=== PATIENT | female | born 1970 | race Caucasian/White ===

== ENCOUNTER → 2016-06-04 | Outpatient (CLI) | payer BC, OTHER ==
[2016-03-06 13:50] VITALS: BP 131/68
--- NOTE | 2016-06-04 16:45 | CT ---
HISTORY: Daily headaches Study: CT brain without contrast Comparison: None Technique: Multiple axial images of the brain were obtained from the skull base to the vertex without administr ation of IV contrast. Dose reduction techniques including Automated Exposure Control (AEC) and adju stment of mA and kV were utilized. Findings: The brain parenchyma is within normal limits for patient's age. No evidence of acute hemorrhage, mi dline shift, mass effect or abnormal extra-axial fluid collection. The ventricular system is symmet sienna and nondilated. The soft tissues and osseous structures are unremarkable. The visualized parana sujatha sinuses are clear. IMPRESSION: 1.No acute intracranial abnormality. Reported By:
== END ==
LOC: RAD 15:51
PROVIDERS: ATTEND Nurse Practitioner Family
DX: G44.52 New daily persistent headache (NDPH) (principal); Z98.2 Presence of cerebrospinal fluid drainage device
CPT/HCPCS: 70450

== ENCOUNTER → 2016-08-13 | Outpatient (CLI) | payer BC, OTHER ==
[2016-03-06 13:50] VITALS: BP 131/68
--- NOTE | 2016-08-14 15:30 | MG ---
HISTORY: SCREENING Comparison: September 21, 2013 FINDINGS: Bilateral CC and MLO projections of the right and left breast were obtained. Scattered fibroglandul ar tissue is seen to be present without significant interval change. No suspicious architectural di stortion, mass or clustered microcalcifications can be observed to suggest malignancy. No skin thic kening or nipple retraction is appreciated. No pathological lymphadenopathy can be identified. Hi ign-appearing calcifications are noted within the right and left breast. IMPRESSION: NO RADIOGRAPHIC EVIDENCE OF MALIGNANCY. ACR CATEGORY 2 - benign findings. FOLLOW-UP EXAM 1 YEAR. Diagnostic CAD was utilized and reviewed. * 0 (ZERO) - ASSESSMENT INCOMPLETE; ADDITIONAL IMAGING IS NEEDED. * 1/1 (ONE) - NEGATIVE. * 2/II (TWO) - BENIGN FINDINGS. * 3/III (THREE) - PROBABLY BENIGN FINDING; SHORT INTERVAL FOLLOW-UP SUGGESTED. * 4/IV (FOUR) - SUSPICIOUS ABNORMALITY; BIOPSY SHOULD BE CONSIDERED. * 5/V (FIVE) - HIGHLY SUSPICIOUS OF MALIGNANCY; BIOPSY SHOULD BE PERFORMED. A NEGATIVE X-RAY REPORT SHOULD NOT DELAY BIOPSY IF A DOMINANT OR CLINICALLY SUSPICIOUS MASS IS PRESENT; 4 TO 8 PERCENT OF CANCERS ARE NOT IDENTIFIED BY X-RAY. A NEG ATIVE REPORT MAY REINFORCE THE CLINICAL IMPRESSION. ADENOSIS AND DENSE BREASTS MAY OBSCURE AN UNDER LYING NEOPLASM. Reported By:
== END ==
LOC: RAD 09:20
PROVIDERS: ATTEND Obstetrics & Gynecology
DX: Z12.31 Encounter for screening mammogram for malignant neoplasm of breast (principal)
CPT/HCPCS: 77067

== ENCOUNTER 2016-08-22 19:51 | Emergency (ER) | payer BC, OTHER ==
[2016-08-22 19:57] VITALS: BMI 31.4
--- NOTE | 2016-08-22 20:02 | DR.GENAD ---
HPI - PCP Primary Care Physician: saige - HPI Comment HPI Comment: PATIENT SAIL GUN SAFETY MECHANISM FAIL AND CRUSH DISTAL 3RD FINGER BETWEEN TWO METALS. SEVERE PAIN IN FINGER THAT IS INJURED. BLEEDING NOT CONTROL. TD NOT UTD. - Complaint/Symptoms Chief Complaint Doctors Comments: CRUSH INJURY RIGHT 3RD FINGER WITH AVULSION AND AND LOST OF ENTIRE NAIL. Chief Complaint:: smashed finger - Nurses notes reviewed Nurses Notes Review: Yes - Source History Provided: Patient, Family Member - Mode of Arrival Mode of Arrival: Wheelchair - Timing Onset of Chief Complaint: 08/22/16 Came on: Suddenly - Duration Duration: Constant Duration: Hours - Severity Severity: Moderate PMH - PMH Past Medical History: Yes Past Medical History: Arthritis, COPD, Diabetes, GERD Past Surgical History: Yes Surgical History: Abdominal Surgery, , Cholecystectomy, Hysterectomy, Ortho Surgery, Tonsillectomy - Family History History of Family Medical Conditions: Yes Family Medical History: Diabetes Mellitus, Hypertension - Social History Does patient currently use any type of tobacco product: No Have you used tobacco products in the last 12 months: No Type of Tobacco Use: None Does any household member use tobacco: No Alcohol Use: None Do you use any recreational Drugs:: No Lives With: Family Lives Where: Home - infectious screening In the last 2 months have you had wt loss of >10#?: NO Have you had fever, night sweats or hemotysis?: No Have you traveled outside the country in the last 6 months?: No Isolation: Standard ROS - Review of Systems Constitutional: No Symptoms Reported Eyes: No Symptoms Reported ENTM: No Symptoms Reported Respiratoy: No Symptoms Reported Cardiovascular: No Symptoms Reported Gastrointestinal/Abdominal: No Symptoms Reported Genitourinary: No Symptoms Reported Neurological: No Symptoms Reported Musculoskeletal: Right, Hand Integumentary: No Symptoms Reported, Other (NAIL AVULSION, NAIL COMPLETELY OFF NAIL. FEW LACERATIONS WITH ACTIVE BLEEDING NOTED.) Hematologic/Lymphatic: No Symptoms Reported Endocrine: No Symptoms Reported All Other Systems: Reviewed and Negative PE - Vital Signs Vitals: Temperature 97.8 F Pulse Rate [] 82 Pulse Rate 87 Respiratory Rate 24 Blood Pressure [] 139/76 Blood Pressure 131/85 O2 Sat by Pulse Oximetry 100 - General Limitations: No Limitations General Appearance: Alert - Head Head Exam: Normal Inspection - Eyes Eye exam: Normal Appearance - ENT ENT Exam: Normal External Ear Exam Throat Exam: Normal Inspection - Neck Neck Exam: Trachea Midline - Chest Chest Inspection: Symmetric Chest Wall Rise - Respiratory Respiratory Exam: Bilateral Clear to Auscultation - Cardiovascular Cardiovascular Exam: Regular Rate, Normal Rhythm, Normal Heart Sounds - Abdominal Exam Abdominal Exam: Normal Inspection - Extremities Extremities Exam: Tenderness (FINGER LACERATION, CRUSH INJURY FINGER AND NAIL AVULSION RIGHT 3RD SERA.) - Neurologic Neurological Exam: Alert, Oriented X3 - Skin Skin Exam: Other (FINHER LACERATION, FINGER ALVULSION RIGHT 3RD FINGER.) [facility] - Additional Information Additional Information Obtained From: Family - Differential Diagnosis Differential Diagnosis: CRUSH INJURY RIGHT 3RD FINGER, LACERATION RIGHT 3RD FINGER AND NAIL ALVULSF Course - Treatment Treatment: SEE ORDERS. BP WENT DOWN DURING THE PROCEDURE OF SUTURING AND APPLLING DRESSING TO FINGER. NX 1L BOLUS GIVEN WHEN SBP DROP IN 60S. BP IMPROVE. NO OTHER COMPLICATIONS NOTED. - Education/Counseling Education/Counseling: Patient, Family, Education Educated On: Treatment, Diagnosis, Needs for Follow Up ROR - XRAY XRAY Interpreted by: Radiologist XRAY Findings: REPORT DISCUSS WITH PATIENT. Procedures - Laceration/Wound Repair Right Wound's Depth, Shape: Other Right 3rd Digit Wound Length (cm): 3 (NAIL INURY, LOST OF ENTIRE NAIL.) Wound's Depth, Shape: Irregular Wound Explored: clean Betadine Prep?: Yes Anesthesia: 2% Lidocaine Volume Anesthetic (ccs): 10 Wound Debrided: minimal Wound Repaired With: sutures Suture Size/Type: 3:0, Ethilion Layer Closure?: No Sterile Dressing Applied?: Yes Splint Applied?: No Sling Applied?: No Progress: CLEAN RIGHT 3RD FINGER AND NUMB WITH 2% LIDOCAINE AT THE BASE OF THE NAIL. CLEAN AND IRRIGATED NAIL WITH NS AND APPLIED 5 SUTURES ON NAIL BED USING 3-O ETHILON. DRESSIN APPLIED.. - Diagnosis Discharge Problem: Vaso vagal episode Crush injury to finger Qualifiers: Encounter type: initial encounter Qualified Code(s): S67.10XA - Crushing injury of unspecified finger(s), initial encounter Laceration of finger Qualifiers: Encounter type: initial encounter Finger: ring finger Damage to nail status: unspecified Foreign body presence: without foreign body Laterality: right Qualified Code(s): S61.214A - Laceration without foreign body of right ring finger without damage to nail, initial encounter - Discharge Plan Disposition: 01 HOME, SELF-CARE Condition: Stable Prescriptions: Cephalexin [Keflex Cap 500 mg] 500 mg PO TID #30 cap Ibuprofen [MOTRIN TAB 600 MG *] 600 mg PO TID PRN #20 tab PRN Reason: Pain/Inflammation Tramadol HCl 50 mg PO Q8H PRN #15 tab PRN Reason: Pain - Follow ups/Referrals Follow ups/Referrals: JOHNNY RAE [Primary Care Provider] - 3 days - Instructions Instructions: Laceration Care, Adult, [id number], Crush Injury, Fingers or Toes Additional Instructions: RETURN TO ED IF WORSE. SUTURE OUT IN 10 DAYS.
[2016-08-22] MEDS ORDERED: XYLOCAINE 2 % (PLAIN) ONE (20:06)
[2016-08-22] MEDS ORDERED: ADACEL TDaP IM ONE ×2 (20:19→22:09)
--- NOTE | 2016-08-22 20:55 | RAD ---
Three views of the right hand Indication: Crush injury of the hand with gun safe Findings: There is moderate soft tissue swelling within dorsal of the hand at the level of the MCP j oints. Additionally there is soft tissue irregularity within the tip of the middle finger suggesting laceration. No acute fracture or malalignment of the right hand. Radiocarpal joint spaces and align ment are maintained. Impression: 1.Laceration at the tip of the middle finger without fracture or dislocation. 2. Moderate dorsal soft tissue swelling at the level of the MCP joints without fracture or malalignm ent of the MCP joints. Reported By:
[2016-08-22] MEDS ORDERED: HYDROGEN PEROXIDE 3% ONE (21:07)
[2016-08-22] MEDS ORDERED: NS 1000 ML 1,000 ML ONE (21:34)
[2016-08-22] MEDS ORDERED: NEOSPORIN OINT TOP ONE (21:46)
[2016-08-22] MEDS ORDERED: NEOSPORIN OINT ONE (21:47)
[2016-08-22] MEDS ORDERED: KEFLEX CAP 500 MG PO ONE ×2 (22:02→22:08)
[2016-08-22] MEDS ORDERED: ULTRAM PO ONE (22:02)
[2016-08-22] MEDS ORDERED: MOTRIN TAB 800 MG PO ONE ×2 (22:03→22:09)
[2016-08-22] MEDS ORDERED: ULTRAM ONE (22:09)
[2016-08-22 22:23] VITALS: BP 139/76
== END 2016-08-22 22:32 | disposition home or self-care (01) ==
LOC: ER 19:51
PROC: 0XQS0ZZ Repair Right Ring Finger, Open Approach (ICD-10-PCS; principal; 2016-08-22)
DX: S61.214A Laceration without foreign body of right ring finger without damage to nail, initial encounter (principal); R55 Syncope and collapse; X58.XXXA Exposure to other specified factors, initial encounter; Y92.9 Unspecified place or not applicable
CPT/HCPCS: 12002; 73130; 90471; 96365; 99283; A4222; J2001

== ENCOUNTER → 2016-08-28 | Outpatient (CLI) | payer BC, OTHER ==
[2016-08-22 22:23] VITALS: BP 139/76
[2016-08-28 15:35] LABS: BASOPHILS % (AUTO) 0.6 % (0.2-1.0); EOSINOPHILS # (AUTO) 0.2 x10^3/uL (0.0-0.2); EOSINOPHILS % (AUTO) 2.3 % (0.9-2.9); HEMATOCRIT 38.2 % (36.0-47.0); HEMOGLOBIN 13.2 g/dL (12.0-16.0); LYMPHOCYTES # (AUTO) 2.1 X10^3/uL (1.3-2.9); LYMPHOCYTES % (AUTO) 29.4 % (21.0-51.0); MEAN CORPUSCULAR HEMOGLOBIN 28.5 pg (27.0-34.0); MEAN CORPUSCULAR HGB CONC 34.6 g/dL (33.0-35.0); MEAN CORPUSCULAR VOLUME 82.3 fL (80.0-100.0); MEAN PLATELET VOLUME 9.4 fL (7.4-11.0); MONOCYTES # (AUTO) 0.5 x10^3/uL (0.3-0.8); MONOCYTES % (AUTO) 6.7 % (0.0-13.0); NEUTROPHILS # (AUTO) 4.4 x10^3/uL (2.2-4.8); PLATELET COUNT 254 X10^3/uL (150.0-450.0); RED BLOOD COUNT 4.63 X10^6/uL (3.5-5.4); RED CELL DISTRIBUTION WIDTH 13.4 % (11.6-16.5); WHITE BLOOD COUNT 7.3 X10^3/uL (3.6-10.0)
--- NOTE | 2016-08-28 15:41 | RAD ---
HISTORY: Preop right 3rd finger nail bed reconstruction Study: Chest two-view Comparison: December 08, 2015 Findings: The trachea is midline. The cardiac silhouette is unremarkable. The lungs are clear without focal infiltrate or effusion. The bony thorax is unremarkable. IMPRESSION: 1. No acute cardiopulmonary disease. Reported By:
[2016-08-28 15:52] LABS: ALANINE AMINOTRANSFERASE 27 Units/L (12-78); ALBUMIN 3.9 g/dL (3.4-5.0); ALKALINE PHOSPHATASE 69 Units/L (46-116); ASPARTATE AMINO TRANSFERASE 17 Units/L (15-37); BLOOD UREA NITROGEN 13 mg/dL (7-18); CALCIUM 9.1 mg/dL (8.5-10.1); CARBON DIOXIDE 28.2 mmol/L (21-32); CHLORIDE 102 mmol/L (98-107); CREATININE 0.71 mg/dL (0.55-1.02); GLUCOSE 89 mg/dL (65-99); SODIUM 137 mmol/L (136-145); TOTAL PROTEIN 7.7 g/dL (6.4-8.2); eGFR BLACK RACES > 60 (>60); eGFR NON BLACK RACES > 60 (>60)
[2016-08-28 15:58] LABS: APPEARANCE,URINE HAZY (CLEAR); BILIRUBIN,URINE NEGATIVE (NEGATIVE); BLOOD/HEMOGLOBIN,URINE NEGATIVE (NEGATIVE); COLOR,URINE YELLOW (YELLOW); GLUCOSE, URINE NEGATIVE (NEGATIVE); KETONES,URINE 2+ (NEGATIVE); LEUKOCYTE ESTERASE ,URINE NEGATIVE (NEGATIVE); NITRITES,URINE NEGATIVE (NEGATIVE); PROTEIN,URINE NEGATIVE (NEGATIVE); RBC,URINE 0-2 /HPF (NEGATIVE); UROBILINOGEN,URINE NORMAL (NORMAL)
[2016-08-28 15:59] LABS: BACTERIA,URINE TRACE /HPF (NEGATIVE); MUCUS,URINE FEW /HPF (NEGATIVE); SQUAMOUS EPITHELIAL CELL,UR NEGATIVE /HPF (NEGATIVE)
== END ==
LOC: LAB 14:50
PROVIDERS: ATTEND Specialist
DX: Z01.818 Encounter for other preprocedural examination (principal); Z01.810 Encounter for preprocedural cardiovascular examination; Z01.811 Encounter for preprocedural respiratory examination; Z79.899 Other long term (current) drug therapy; Z11.8 Encounter for screening for other infectious and parasitic diseases; S61.312A Laceration without foreign body of right middle finger with damage to nail, initial encounter; X58.XXXA Exposure to other specified factors, initial encounter
CPT/HCPCS: 36415; 71020; 80053; 81001; 85025; 87641; 93005; 93010

== ENCOUNTER → 2016-08-31 | Day surgery (SDC) | payer BC, OTHER ==
[~2016-08-31] MED LIST: DIPRIVAN VIAL ONE; NAROPIN 0.75% ONE; REGLAN INJ 10 MG VIAL ONE; VERSED ONE; XYLOCAINE 1 % (PLAIN) ONE; XYLOCAINE 2 % (PLAIN) ONE; ZOFRAN INJ 4 MG VIAL ONE
[2016-08-31] MEDS: D5 LR 1000 ML 1,000 ML IV ONE (10:29)
[2016-08-31] MEDS: NS 50 ML IV + SPIKE MINIBAG* 50 ML IV ONE (11:20)
[2016-08-31] MEDS: ANCEF VIAL 1 GM ONE (11:25)
[2016-08-31] MEDS: NS IRRIGATION 1000 ML 1,000 ML with BACITRACIN VIAL 50,000 UNT IR ONE ×2 (11:48)
[2016-08-31 13:22] VITALS: BP 135/87
== END | disposition home or self-care (01) | DRG 581 ==
LOC: SURG1 09:40
PROVIDERS: ATTEND Specialist
PROC: 0HQQXZZ Repair Finger Nail, External Approach (ICD-10-PCS; principal; 2016-08-31 11:15)
DX: S61.312A Laceration without foreign body of right middle finger with damage to nail, initial encounter (principal); X58.XXXA Exposure to other specified factors, initial encounter
CPT/HCPCS: A4222; J0690; J2001; J2250; J2405; J2765; J3490; J7120

== ENCOUNTER → 2017-02-12 | Outpatient (CLI) | payer BC, OTHER ==
[2016-08-31 13:22] VITALS: BP 135/87
--- NOTE | 2017-02-16 09:44 | MRI ---
MRI cervical spine without contrast Indication: Neck pain, spondylosis Technique: Multiplanar, multi sequence imaging of the cervical spine without IV contrast administrati on. Findings: Cervical spine alignment is maintained. There is no localizing bone marrow signal abnormali ty within the cervical spine. No vertebral height loss. No prevertebral or paraspinal soft tissue swe lling. There is diffuse disc desiccation throughout the cervical spine. The cervical cord demonstrate s normal signal without evidence of atrophy or expansion. The craniocervical junction is intact. Card iomegaly is widely patent. There is no mass or mass effect within the visualized posterior fossa. Shahid ateral perineural root cysts are noted at T1-2 and on the right at C7-T1. At C2-3 unremarkable At C3-4 mild facet arthropathy without spinal canal or neural foraminal stenosis. At C4-5 mild uncovertebral hypertrophy and facet arthropathy causing no right and mild left-sided bon y neural foraminal stenosis. No spinal canal narrowing. At C5-6 disc osteophyte complex and uncovertebral hypertrophy causes mild to moderate spinal canal st enosis. Facet arthropathy and uncovertebral hypertrophy causes mild bilateral bony neural foraminal s tenosis. At C6-7 disc osteophyte complex causes mild spinal canal stenosis without significant bony neural for aminal narrowing. At C7-T1 unremarkable. Impression: Multilevel discogenic degenerative change and facet arthropathy causing mild spinal canal and bony neural foraminal stenosis as described above. Reported By:
--- NOTE | 2017-02-16 10:19 | MRI ---
MRI thoracic spine without contrast Indication: Back pain Technique: Multiplanar, multi sequence imaging of the thoracic spine without IV contrast administrati on. Findings: The thoracic spine alignment is normal. There is no localizing bone marrow signal abnormali ty within the thoracic spine vertebral bodies. No prevertebral soft tissue swelling. There is no abno rmal signal or evidence of expansion or atrophy within the thoracic cord. At no level is there spinal canal or bony neural foraminal stenosis within thoracic spine. Impression: Normal thoracic spine MRI. Reported By:
[2017-02-18 06:11] LABS: ALPHA-1-ANTITRYPSIN 61 mg/dL (90-200)
== END | disposition home or self-care (01) | DRG 203 ==
LOC: RAD 14:12
PROVIDERS: ATTEND Nurse Practitioner Family
DX: J45.40 Moderate persistent asthma, uncomplicated (principal); E88.01 Alpha-1-antitrypsin deficiency; M47.812 Spondylosis without myelopathy or radiculopathy, cervical region; M54.6 Pain in thoracic spine
CPT/HCPCS: 36415; 72141; 72146; 82103; 82104

== ENCOUNTER 2017-02-19 09:46 | Day surgery (SDC) | payer BC, OTHER ==
[2017-02-19] MEDS ORDERED: D5 LR 1000 ML 1,000 ML IV ONE (09:54)
[2017-02-19] MEDS ORDERED: XYLOCAINE 2 % (PLAIN) ONE (10:49)
[2017-02-19] MEDS ORDERED: DIPRIVAN VIAL 20 ML ONE (10:49)
[2017-02-19 11:32] VITALS: BP 120/76
== END 2017-02-19 11:30 | disposition home or self-care (01) ==
LOC: SURG1 09:46
PROVIDERS: ATTEND Internal Medicine
PROC: 0DB68ZX Excision of Stomach, Via Natural or Artificial Opening Endoscopic, Diagnostic (ICD-10-PCS; principal; 2017-02-19 10:00)
PROC: 0DJ08ZZ Inspection of Upper Intestinal Tract, Via Natural or Artificial Opening Endoscopic (ICD-10-PCS; principal; 2017-02-19 10:00)
DX: K21.0 Gastro-esophageal reflux disease with esophagitis (principal); K44.9 Diaphragmatic hernia without obstruction or gangrene; K25.9 Gastric ulcer, unspecified as acute or chronic, without hemorrhage or perforation; K20.8 Other esophagitis
CPT/HCPCS: A4217; J2001; J3490; J7120

== ENCOUNTER → 2017-05-07 | Outpatient (CLI) | payer BC, OTHER ==
[2017-05-07 12:36] LABS: ALANINE AMINOTRANSFERASE 25 Units/L (12-78); ALBUMIN 3.9 g/dL (3.4-5.0); ALKALINE PHOSPHATASE 59 Units/L (46-116); ASPARTATE AMINO TRANSFERASE 17 Units/L (15-37); BILIRUBIN,DIRECT 0.06 mg/dL (0-0.2); BLOOD UREA NITROGEN 14 mg/dL (7-18); CALCIUM 8.3 mg/dL (8.5-10.1); CARBON DIOXIDE 26.9 mmol/L (21-32); CHLORIDE 102 mmol/L (98-107); CREATININE 0.76 mg/dL (0.55-1.02); SODIUM 139 mmol/L (136-145); TOTAL PROTEIN 7.4 g/dL (6.4-8.2); eGFR BLACK RACES > 60 (>60); eGFR NON BLACK RACES > 60 (>60)
== END ==
LOC: LAB 12:10
PROVIDERS: ATTEND Internal Medicine Pulmonary Disease
DX: R16.0 Hepatomegaly, not elsewhere classified (principal)
CPT/HCPCS: 36415; 80048; 80076; 82103